=== PATIENT | female | born 1940 | race Caucasian/White ===

== ENCOUNTER 2016-12-15 14:52 | Outpatient (CLI) | payer OTHER ==
--- NOTE | 2016-12-15 15:40 | DIAGNOSTIC IMAGING REPORT ---
PROCEDURE: CT HEAD WITHOUT CONTRAST INDICATION: HEAD INJURY TECHNIQUE: Axial CT images were acquired through the head. Coronal and sagittal reformations were created. COMPARISON: None. FINDINGS: No intracranial hemorrhage or extraaxial fluid collections. Ventricles are normal in size, shape and position. There is no mass, mass effect or midline shift. The wooten-white matter differentiation is normal. There is no edema. The calvarium is intact. The paranasal sinuses and mastoid air cells are normally aerated. The extracranial soft tissues and orbits are normal. There is a left occipital scalp edema. IMPRESSION: 1. No CT evidence of acute intracranial process. 2. Findings discussed with Kirsten Oliveira at 03:[address] scans at this facility use dose modulation, iterative reconstruction, and/or weight-based dosing when appropriate to reduce radiation dose to as low as reasonably achievable.
== END 2016-12-15 23:00 ==
LOC: CT SRH 14:52
DX: S09.90XA Unspecified injury of head, initial encounter (principal)